=== PATIENT | female | born 1980 | race Two or more races ===

== ENCOUNTER 2023-11-07 08:50 | Emergency (ER) | payer BC, OTHER ==
[~2023-11-07] VITALS: Ht 172.7 cm; Wt 52.2 kg
== END 2023-11-07 10:27 | disposition home or self-care (01) ==
LOC: ER 08:51
DX: S91.332A Puncture wound without foreign body, left foot, initial encounter (principal); S41.131A Puncture wound without foreign body of right upper arm, initial encounter; X58.XXXA Exposure to other specified factors, initial encounter; Y93.89 Activity, other specified; Y92.832 Beach as the place of occurrence of the external cause; Y99.9 Unspecified external cause status